=== PATIENT | male | born 1960 | race Caucasian/White ===

== ENCOUNTER 2021-12-23 05:35 | Inpatient (IN) | payer OTHER, SELFPAY ==
[~2021-12-23] VITALS: Ht 172.7 cm; Wt 131.1 kg
[2021-12-23] MEDS ORDERED: THROMBIN (BOVINE) 5000 UNITS/ VIAL TP ONE (07:28)
[2021-12-23] MEDS ORDERED: fentaNYL CITRATE 250 MCG/5 ML AMP IV ONE (07:40)
[2021-12-23] MEDS ORDERED: ACETAMINOPHEN I.V. 1000 MG 100 ML IV ONE (07:47)
[2021-12-23] MEDS ORDERED: HYDROmorphone 2 MG/ML VIAL IVP PRN (09:30)
[2021-12-23] MEDS ORDERED: HYDROcodone/ACETAMIN 10-325 MG TAB PO PRN (09:30)
[2021-12-23] MEDS ORDERED: ZOLPIDEM TARTRATE 5 MG TABLET PO PRN (09:30)
[2021-12-23] MEDS ORDERED: methocarbamoL 500 MG TABLET PO PRN (09:30)
[2021-12-23] MEDS ORDERED: MILK OF MAGNESIA 30 ML UDC PO PRN (09:30)
[2021-12-23] MEDS ORDERED: HYDROmorphone 1 MG/ML INJ. CARTRIDGE IVP PRN ×2 (09:30)
[2021-12-23] MEDS ORDERED: ONDANSETRON HCL 4 MG/2 ML VIAL IVP PRN (09:30)
[2021-12-23] MEDS ORDERED: DIPHENHYDRAMINE HCL 25 MG CAPSULE PO PRN (09:30)
[2021-12-23 10:50] VITALS: BP_SYST 159
[2021-12-23] MEDS: KETOROLAC TROMETHAMINE 30 MG VIAL IVP PRN (11:23)
[2021-12-23 11:35] VITALS: BP_SYST 159
[2021-12-23 12:00] VITALS: BP_SYST 149
[2021-12-23] MEDS: HYDROcodone/ACETAMIN 10-325 MG TAB PO PRN (13:16)
[2021-12-23] MEDS: CEFAZOLIN 2 GM IVPB PREMIX 50 ML IV SCH ×2 (13:16→20:47)
[2021-12-23] MEDS: KCL 20 mEq in D5NS 1000 mL 1,000 ML IV SCH ×2 (13:17→20:47)
[2021-12-23 15:13] VITALS: BP_SYST 165
[2021-12-23 20:00] VITALS: BP_SYST 135
[2021-12-23 22:20] VITALS: BP_SYST 135
[2021-12-24 00:15] VITALS: BP_SYST 140
[2021-12-24] MEDS: CEFAZOLIN 2 GM IVPB PREMIX 50 ML IV SCH (05:25)
[2021-12-24] MEDS: KCL 20 mEq in D5NS 1000 mL 1,000 ML IV SCH ×3 (05:25→13:58)
[2021-12-24] MEDS: KETOROLAC TROMETHAMINE 30 MG VIAL IVP PRN (11:05)
[2021-12-24 11:22] VITALS: BP_SYST 155
[2021-12-24 15:07] VITALS: BP_SYST 140
[2021-12-24 16:33] VITALS: BP_SYST 145
[2021-12-24 19:27] VITALS: BP_SYST 139
[2021-12-24 20:00] VITALS: BP_SYST 154
[2021-12-24] MEDS: HYDROcodone/ACETAMIN 10-325 MG TAB PO PRN (23:39)
[2021-12-25] VITALS: BP_SYST 143
[2021-12-25] MEDS: KCL 20 mEq in D5NS 1000 mL 1,000 ML IV SCH (04:00)
[2021-12-25 08:41] VITALS: BP_SYST 131
[2021-12-25 09:17] VITALS: BP_SYST 131
== END 2021-12-25 10:35 | disposition home or self-care (01) | DRG 519 ==
LOC: SDS 05:35 → SMU 05:35 → SDS 11:04 → SMU 12-24 21:28
PROVIDERS: ADMIT Neurological Surgery; ATTEND Neurological Surgery
PROC: 00NY0ZZ Release Lumbar Spinal Cord, Open Approach (ICD-10-PCS; principal; 2021-12-23 07:40)
DX: M48.062 Spinal stenosis, lumbar region with neurogenic claudication (principal); Z68.41 Body mass index [BMI] 40.0-44.9, adult; M19.90 Unspecified osteoarthritis, unspecified site; Z20.822 Contact with and (suspected) exposure to COVID-19; E66.01 Morbid (severe) obesity due to excess calories; I10 Essential (primary) hypertension; E11.9 Type 2 diabetes mellitus without complications
CPT/HCPCS: 36415; 76000; 82962; 97110-GP; 97116-GP; 97163-GP; 97530-GP; J0131; J0690; J1885; J3010